=== PATIENT | female | born 1955 | race Caucasian/White ===

== ENCOUNTER 2025-03-01 08:37 | Observation (INO) | payer MEDICARE ==
[2025-02-27 14:50] VITALS: BMI 37.7
[2025-03-01] MEDS ORDERED: LevoFLOXacin D5W 500 mg (100 mL) BAG ONE (09:43)
[2025-03-01] MEDS ORDERED: PROPOFOL 20 ML ONE (10:13)
[2025-03-01] MEDS ORDERED: Rocuronium Bromide 10 MG/ML (10ML VIAL) ONE ×2 (10:13→11:13)
[2025-03-01] MEDS ORDERED: Iopamidol 370 76% 100 ML VIAL ONE (10:20)
[2025-03-01] MEDS ORDERED: PROPOFOL 200 MG/20 ML VIAL ONE (11:13)
[2025-03-01] MEDS ORDERED: SUGAMMADEX SODIUM 200 MG/2 ML VIAL ONE (11:24)
[2025-03-01] MEDS ORDERED: Ondansetron PF 4 MG/2 ML Vial ONE (11:24)
[2025-03-01] MEDS ORDERED: Hyoscyamine SL 0.125 MG TAB ONE (14:05)
[2025-03-01] MEDS ORDERED: Mag-Al 1200 mg/1200 mg/30 ML UDCUP PO PRN (14:09)
[2025-03-01] MEDS ORDERED: hydrALAZINE 20 MG/ML VIAL SLOW IVP PRN (14:09)
[2025-03-01] MEDS ORDERED: diphenhydrAMINE 50 MG/ML VIAL IVP PRN (14:09)
[2025-03-01] MEDS ORDERED: Ondansetron PF 4 MG/2 ML Vial IVP PRN (14:13)
[2025-03-01 14:15] LABS: #Basophils 0.04 10x3/uL (0.0-0.2); #Eosinophils 0.04 10x3/uL (0.0-0.7); #Monocytes 0.12 10x3/uL (0.11-0.59); #Neutrophils 4.72 10x3/uL (1.40-6.50); %Basophils 0.7 % (0.0-1.0); %Eosinophils 0.7 % (0.0-10.0); %Lymphocytes 19.7 % (21.0-51.0); %Monocytes 2.0 % (0.0-10.0); %Neutrophils 76.6 % (42.0-75.0); Hematocrit 34.6 % (36.0-47.0); Hemoglobin 10.7 g/dL (12.0-16.0); Mean Corpuscular Hemoglobin 28.8 pg (27.0-31.0); Mean Corpuscular Volume 93.0 fL (78.0-98.0); Platelet Count 247 10x3/uL (130-400); Red Blood Cell (RBC) Count 3.72 mill/uL (4.20-5.40); White Blood Cell (WBC) Count 6.15 10x3/uL (4.8-10.8)
[2025-03-01 14:37] LABS: Anion Gap 12 mmol/L (10-20); BUN (Urea Nitrogen) 9 mg/dL (9.8-20.1); Calc. Creatinine Clearance 128 mL/min (70-130); Calcium 8.4 mg/dL (7.8-10.44); Carbon Dioxide 23 mmol/L (23-31); Chloride 110 mmol/L (98-107); Glucose 103 mg/dL (80-115); Potassium 4.0 mmol/L (3.5-5.1); Sodium 141 mmol/L (136-145)
[2025-03-01] MEDS: Hyoscyamine SL 0.125 MG TAB SL PRN (18:09)
[2025-03-01] MEDS: Pantoprazole 40 MG DR.TAB PO SCH (20:38)
[2025-03-01] MEDS: Acetaminophen 500 MG TAB PO PRN (20:38)
[2025-03-01] MEDS: Losartan 25 MG TAB PO SCH (20:38)
[2025-03-01] MEDS: Famotidine/PF 20 mg/2ml Vial SLOW IVP SCH (20:39)
[2025-03-01] MEDS: Cyclobenzaprine 10 MG TAB PO PRN (23:07)
[2025-03-02] MEDS: cefTRIAXone\\ROCEPHIN 1 GM in Sodium Chloride 0.9% 100 ML IVPB SCH (04:56)
[2025-03-02 05:23] LABS: #Basophils 0.04 10x3/uL (0.0-0.2); #Eosinophils Less than 0.03 10x3/uL (0.0-0.7); #Monocytes 0.32 10x3/uL (0.11-0.59); #Neutrophils 4.70 10x3/uL (1.40-6.50); %Basophils 0.6 % (0.0-1.0); %Eosinophils 0.0 % (0.0-10.0); %Lymphocytes 22.2 % (21.0-51.0); %Monocytes 4.9 % (0.0-10.0); %Neutrophils 72.0 % (42.0-75.0); Hematocrit 32.3 % (36.0-47.0); Hemoglobin 10.1 g/dL (12.0-16.0); Mean Corpuscular Hemoglobin 28.6 pg (27.0-31.0); Mean Corpuscular Volume 91.5 fL (78.0-98.0); Platelet Count 243 10x3/uL (130-400); Red Blood Cell (RBC) Count 3.53 mill/uL (4.20-5.40); White Blood Cell (WBC) Count 6.53 10x3/uL (4.8-10.8)
[2025-03-02 05:46] LABS: Anion Gap 12 mmol/L (10-20); BUN (Urea Nitrogen) 7 mg/dL (9.8-20.1); Calc. Creatinine Clearance 134 mL/min (70-130); Calcium 8.3 mg/dL (7.8-10.44); Carbon Dioxide 23 mmol/L (23-31); Chloride 110 mmol/L (98-107); Glucose 110 mg/dL (80-115); Potassium 3.8 mmol/L (3.5-5.1); Sodium 141 mmol/L (136-145)
[2025-03-02 12:03] VITALS: TEMP 97.2
[2025-03-02 12:07] VITALS: BP 134/81
[2025-03-04] MEDS ORDERED: FLU (Fluad Triv) 25-26 (65UP)PF 45 MCG/0.5 ML Syringe IM ONE (19:30)
== END 2025-03-02 18:16 | disposition home or self-care (01) ==
LOC: SDC 08:37 → SURG A 14:13
PROVIDERS: ADMIT Urology; ATTEND Urology
DX: N20.2 Calculus of kidney with calculus of ureter (principal); Z88.2 Allergy status to sulfonamides; Z88.5 Allergy status to narcotic agent
CPT/HCPCS: 74018; 74174; 74420; 80048 ×2; 82365; 85025 ×2; A4333; C1747; C1758; C1769 ×2; C2617; C9761; J0696; J1100; J1308 ×2; J1956; J2405; J2704; J3010; J7030 ×2; Q9967; 36415; 88300